=== PATIENT | female | born 1995 | race Caucasian/White ===

== ENCOUNTER → 2017-09-18 | Outpatient (CLI) | payer OTHER ==
--- NOTE | 2017-09-18 12:28 | RAD ---
Indication: Cough. Time of exam 12:20 PM No prior studies are available for comparison. FINDINGS: The heart size is normal. The lungs are clear. No pleural effusion or pneumothorax is identified. The pulmonary vascularity is normal. IMPRESSION: No acute abnormality detected.
[2017-09-18 12:34] LABS: HEMATOCRIT 44.5 % (36.0-47.0); HEMOGLOBIN 14.3 g/dL (12.0-15.5); RED BLOOD COUNT 4.99 x10^6/uL (3.50-5.40); WHITE BLOOD COUNT 12.5 x10^3/uL (4.0-11.0)
[2017-09-18 12:35] LABS: MEAN CORPUSCULAR HEMOGLOBIN 29 pg (25-35); MEAN CORPUSCULAR HGB CONC 32 g/dL (31-37); MEAN CORPUSCULAR VOLUME 89 fL (79-100); PLATELET COUNT 459 x10^3/uL (140-400); RED CELL DISTRIBUTION WIDTH 12.7 % (11.5-14.5)
[2017-09-18 12:49] LABS: % BANDS 2 % (0-9); % BASOS 3 % (0-3); % EOS 1 % (0-5); % LYMPHS 32 % (24-48); % METAS 1 % (0-0); % MONOS 8 % (0-10); % SEGS 50 % (35-66)
[2017-09-18 12:55] LABS: PLT ESTIMATE ADEQUATE (ADEQUATE)
== END | disposition home or self-care (01) ==
LOC: PMG 12:02
PROVIDERS: ATTEND Nurse Practitioner Family
DX: R05 Cough (principal)
CPT/HCPCS: 36415; 71020; 85007; 85025

== ENCOUNTER → 2017-10-03 | Outpatient (CLI) | payer OTHER ==
--- NOTE | 2017-10-03 10:23 | RAD ---
CT sinuses 10/03/2017 Indication: Sinusitis. Comparison: None available. Technique: Multiple axial CT images of the paranasal sinuses are provided without intravenous contrast. Coronal and sagittal reformats are provided Findings: Maxillary sinuses are well aerated. Ostiomeatal units are patent. Ethmoid air cells and frontal sinuses are well aerated. Sphenoid sinuses are well aerated. No osseous erosions are identified. Visualized portions of the frontal lobes are normal. Orbits are normal in appearance. Extraocular muscles are intact. Optic nerves appear normal. Osseous orbits are intact. Skull base is intact. Sella appears normal. Mastoid air cells are well aerated. Impression: Paranasal sinuses are well aerated with patent ostiomeatal units. PQRS Compliance Statement: One or more of the following individualized dose reduction techniques were utilized for this examination: 1. Automated exposure control 2. Adjustment of the mA and/or kV according to patient size 3. Use of iterative reconstruction technique
== END | disposition home or self-care (01) ==
LOC: CT 10:04
PROVIDERS: ATTEND Nurse Practitioner Family
DX: J32.9 Chronic sinusitis, unspecified (principal)
CPT/HCPCS: 70486